=== PATIENT | female | born 1950 | race Hispanic/Latino ===

== ENCOUNTER 2022-06-23 21:06 | Emergency (ER) | payer MEDICARE, BC ==
[2022-06-23] MEDS ORDERED: SODIUM CHLORIDE 0.9% 1000 ML 1,000 ML IV ONE (22:19)
[2022-06-23] MEDS ORDERED: MECLIZINE 25 MG TAB PO ONE (22:19)
--- NOTE | 2022-06-23 22:25 | Emergency Department Report ---
ED Dizziness HPI - General Chief Complaint: Dizziness Stated Complaint: NAUSEA,VOMITING,DIZZINESS Time Seen by Provider: 06/23/22 21:41 Source: EMS Mode of arrival: Ambulatory Limitations: No Limitations - History of Present Illness Initial Comments: 71 yo F with covid 18 November this year who present with dizziness that started with diaphoresis while at the [facility] transitioning to [place] this evening. Pt denies any sob or chest pain or palpitation. She did have history of vertigo post covid until around January. No fever or chills. She reports right sided ear discomfort last night but ear discharge. No other modifying or associated factors reported. MD Complaint: dizziness - Related Data Previous Rx's Medication Instructions Recorded Last Taken Type Meclizine HCl [Antivert] 50 mg PO TID 7 Days #21 tab NS 06/24/22 Unknown Rx Allergies Allergy/AdvReac Type Severity Reaction Status Date / Time erythromycin base Allergy Hives Verified 06/23/22 21:14 penicillin G benethamine Allergy Hives Verified 06/23/22 21:14 Sulfa (Sulfonamide Allergy Hives Verified 06/23/22 21:14 Antibiotics) ED Review of Systems ROS: Stated complaint: NAUSEA,VOMITING,DIZZINESS Other details as noted in HPI Comment: All other systems reviewed and negative Cardiovascular: syncope, other (dizziness ) ED Past Medical Hx - Medications Home Medications: Home Medications Medication Instructions Recorded Confirmed Last Taken Type Meclizine HCl [Antivert] 50 mg PO TID 7 Days #21 tab NS 06/24/22 Unknown Rx ED Physical Exam - General Limitations: No Limitations General appearance: alert, in no apparent distress - Head Head exam: Present: normal inspection - Eye Eye exam: Present: normal appearance Pupils: Present: normal accommodation - ENT ENT exam: Present: normal exam, normal orophraynx, mucous membranes dry, other (bilateral TM with fluids but no erythema) - Neck Neck exam: Present: normal inspection, full ROM. Absent: tenderness - Respiratory Respiratory exam: Present: normal lung sounds bilaterally. Absent: respiratory distress, accessory muscle use - Cardiovascular Cardiovascular Exam: Present: regular rate, normal rhythm, normal heart sounds - GI/Abdominal GI/Abdominal exam: Present: soft, normal bowel sounds. Absent: distended, tenderness - Extremities Exam Extremities exam: Present: normal inspection, full ROM, normal capillary refill. Absent: tenderness, pedal edema - Back Exam Back exam: Absent: tenderness - Neurological Exam Neurological exam: Present: alert, oriented X3 - Psychiatric Psychiatric exam: Present: normal affect, normal mood - Skin Skin exam: Present: warm, normal color ED Course Vital Signs 06/23/22 06/24/22 21:10 01:57 Temperature 97.6 F Pulse Rate 73 Respiratory 18 Rate Blood Pressure 181/98 [Left] O2 Sat by Pulse 98 98 Oximetry ED Medical Decision Making - Lab Data Result diagrams: 06/23/22 22:35 06/23/22 22:35 - Medical Decision Making Here with dizziness -- with perspiration -- associated with vertigo this is likely vasovagal related to heat exhaustion--but differential could be and not limited to seizure, symptomatic anemia, myocardial infarction, pulmonary embolism, anxiety, CVA especially posterior stroke or thyroid abnormality--in order to rule those out I will go ahead and order routine cardiopulmonary work- up that include troponin, EKG, chest x-ray, BNP, CKMB, and CBC, CMP, Urinalysis and thyroid panel for any correctable infectious process or electrolyte abnormality as a cause. Will also order CT brain for any intracranial abno rmality as mentioned above. In the meantime will give ivf ns 1L bolus for hydration as most are dehydrated in the hot weather anyway and given meclizine and Reglan for symptomatic relief. Critical care attestation.: If time is entered above; I have spent that time in minutes in the direct care of this critically ill patient, excluding procedure time. ED Disposition Clinical Impression: Dizziness, Vertigo, Nausea and vomiting in adult Disposition: 01 HOME / SELF CARE / HOMELESS Is pt being admited?: No Does the pt Need Aspirin: No Condition: Stable Instructions: Nausea and Vomiting, Adult, [id number], Dizziness, [id number] Additional Instructions: Take your meclizine as prescribed to help your symptoms vertigo Increase your daily fluid to help your hydration Maintain adequate rest to help your overall health Call and schedule follow-up with your primary doctor in the next 3 to 5 days for progress Please do not hesitate to call or return to emergency room if your symptoms worsen Prescriptions: Meclizine HCl [Antivert] 50 mg PO TID 7 Days #21 tab NS Time of Disposition: 04:07
[2022-06-23 22:58] LABS: Basophils # (Auto) 0.1 K/mm3 (0.0-0.1); Basophils % (Auto) 0.5 % (0.0-1.8); Eosinophils # (Auto) 0.3 K/mm3 (0.0-0.4); Eosinophils % (Auto) 2.1 % (0.0-4.3); Hematocrit 42.8 % (30.3-42.9); Lymphocytes # (Auto) 1.4 K/mm3 (1.2-5.4); Lymphocytes % (Auto) 11.4 % (13.4-35.0); Mean Corpuscular HGB Conc 33 % (30-34); Mean Corpuscular Volume 83 fl (79-97); Monocytes # (Auto) 0.4 K/mm3 (0.0-0.8); Monocytes % (Auto) 3.5 % (0.0-7.3); Platelet Count 263 K/mm3 (140-440); Red Blood Count 5.19 M/mm3 (3.65-5.03); Red Cell Distribution Width 13.2 % (13.2-15.2)
--- NOTE | 2022-06-23 23:02 | XRay Report ---
CHEST 1 VIEW 06/23/2022 10:42 PM INDICATION / CLINICAL INFORMATION: Lightheadedness/Dizziness. COMPARISON: None available. FINDINGS: SUPPORT DEVICES: None. HEART / MEDIASTINUM: No significant abnormality. LUNGS / PLEURA: No significant pulmonary or pleural abnormality. No pneumothorax. ADDITIONAL FINDINGS: No significant additional findings. IMPRESSION: 1. No acute findings. Signer Name: Byron Louie MD Signed: 06/23/2022 10:57 PM Workstation Name: [email or web address]
--- NOTE | 2022-06-23 23:10 | Cat Scan Report ---
CT HEAD WITHOUT CONTRAST INDICATION / CLINICAL INFORMATION: Lightheadedness/Dizziness. TECHNIQUE: All CT scans at this location are performed using CT dose reduction for ALARA by means of automated exposure control. COMPARISON: None available. FINDINGS: HEMORRHAGE: None. EXTRA-AXIAL SPACES: Moderately prominent likely related to cortical atrophy. VENTRICULAR SYSTEM: Normal in size and morphology for the patient's age. 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 No acut e territorial infarct. Moderate frontal lobe predominant volume loss. MIDLINE SHIFT / HERNIATION: None. CEREBELLUM / BRAINSTEM: No significant abnormality. ORBITS: Normal as visualized. SOFT TISSUES: No significant abnormality. SKULL: No significant abnormality. PARANASAL SINUSES / MASTOID AIR CELLS: Small mucous retention cyst within the left maxillary sinus. ADDITIONAL FINDINGS: None. IMPRESSION: 1. Moderate frontal lobe predominant parenchymal volume loss. 2. No CT evidence of an acute intracranial abnormality. Signer Name: Byron Louie MD Signed: 06/23/2022 11:05 PM Workstation Name: [email or web address]
[2022-06-23 23:14] LABS: Creatine Kinase MB 3.1 ng/mL (0.0-4.0)
[2022-06-23 23:15] LABS: Alanine Aminotransferase 24 units/L (7-56); Albumin 4.3 g/dL (3.9-5); Blood Urea Nitrogen 17 mg/dL (7-17); Hemolysis Index 14
[2022-06-23 23:19] LABS: BUN/Creatinine Ratio 28
[2022-06-24] MEDS ORDERED: MECLIZINE 25 MG TAB PO ONE (01:30)
[2022-06-24] MEDS ORDERED: SODIUM CHLORIDE 0.9% 1000 ML 1,000 ML IV ONE (01:30)
[2022-06-24 03:35] LABS: Color,Urine Colorless (Yellow)
[2022-06-24 03:36] LABS: Mucus,Urine FEW /HPF; RBC,Urine < 1.0 /HPF (0.0-6.0); WBC,Urine < 1.0 /HPF (0.0-6.0)
[2022-06-24 04:44] VITALS: BP 160/73
== END 2022-06-24 04:45 | disposition home or self-care (01) ==
LOC: ED 21:06
DX: R42 Dizziness and giddiness (principal); R11.2 Nausea with vomiting, unspecified; Z88.2 Allergy status to sulfonamides; Z88.0 Allergy status to penicillin; Z88.1 Allergy status to other antibiotic agents
CPT/HCPCS: 36415; 70450; 71045; 80053; 81001; 82550; 82553; 84484; 85025; 85610; 96360; 99285; J7030